=== PATIENT | female | born 1945 | race Caucasian/White ===

== ENCOUNTER 2019-02-18 | Emergency (ER) | payer MEDICARE, OTHER | END 2019-02-18 23:00 | disposition home or self-care (01) | DX: R26.9 Unspecified abnormalities of gait and mobility (principal); R20.0 Anesthesia of skin; E04.1 Nontoxic single thyroid nodule; R06.01 Orthopnea; I10 Essential (primary) hypertension | CPT/HCPCS: 36415; 70450; 80053; 83690; 84443; 84484; 85025; 85379; 93005; 93880; 99284 ==

== ENCOUNTER 2019-03-17 11:20 | Outpatient (CLI) | payer MEDICARE, OTHER | END 2019-03-17 11:21 | disposition home or self-care (01) | LOC: DI 11:20 | PROVIDERS: ATTEND Family Medicine | DX: I08.3 Combined rheumatic disorders of mitral, aortic and tricuspid valves (principal) | CPT/HCPCS: 93306 ==

== ENCOUNTER 2019-03-25 07:59 | Day surgery (SDC) | payer MEDICARE, OTHER ==
[2019-03-25] MEDS ORDERED: LACTATED RINGERS 1,000 ML IV ONE (08:25)
[2019-03-25] MEDS ORDERED: LIDO GARGLE 30 ML BOTTLE ONE (09:52)
[2019-03-25 11:15] VITALS: BP 132/75
== END 2019-03-25 08:00 | disposition home or self-care (01) ==
LOC: SDS 07:59
PROVIDERS: ATTEND Surgery
PROC: 0DB78ZX Excision of Stomach, Pylorus, Via Natural or Artificial Opening Endoscopic, Diagnostic (ICD-10-PCS; 2019-03-25)
PROC: 0DB58ZX Excision of Esophagus, Via Natural or Artificial Opening Endoscopic, Diagnostic (ICD-10-PCS; 2019-03-25)
PROC: 0DB98ZX Excision of Duodenum, Via Natural or Artificial Opening Endoscopic, Diagnostic (ICD-10-PCS; principal; 2019-03-25 09:15)
DX: K21.9 Gastro-esophageal reflux disease without esophagitis (principal); K22.70 Barrett's esophagus without dysplasia; K44.9 Diaphragmatic hernia without obstruction or gangrene; K29.50 Unspecified chronic gastritis without bleeding; Z87.891 Personal history of nicotine dependence; E66.9 Obesity, unspecified; Z68.30 Body mass index [BMI] 30.0-30.9, adult
CPT/HCPCS: 43239; J7120

== ENCOUNTER 2019-06-24 13:00 | Day surgery (SDC) | payer MEDICARE, OTHER ==
[2019-06-24] MEDS ORDERED: fentaNYL 250 MCG/5 ML VIAL IVP ONE (13:01)
[2019-06-24] MEDS ORDERED: MIDAZOLAM 2 MG/2 ML VIAL IVP ONE (13:01)
[2019-06-24] MEDS ORDERED: LACTATED RINGERS 1,000 ML IV ONE (13:13)
[2019-06-24 16:07] VITALS: BP 116/73
== END 2019-06-24 13:01 | disposition home or self-care (01) ==
LOC: SDS 13:00
PROVIDERS: ATTEND Surgery
PROC: 0DBP8ZX Excision of Rectum, Via Natural or Artificial Opening Endoscopic, Diagnostic (ICD-10-PCS; principal; 2019-06-24 15:00)
DX: K62.5 Hemorrhage of anus and rectum (principal); K57.30 Diverticulosis of large intestine without perforation or abscess without bleeding; K64.8 Other hemorrhoids; Z80.0 Family history of malignant neoplasm of digestive organs
CPT/HCPCS: 45380; J3010; J7120

== ENCOUNTER 2020-07-01 13:55 | Outpatient (CLI) | payer MEDICARE, OTHER | END 2020-07-01 13:56 | disposition home or self-care (01) | LOC: COV 13:55 | PROVIDERS: ATTEND Surgery | DX: Z01.812 Encounter for preprocedural laboratory examination (principal); K22.70 Barrett's esophagus without dysplasia; Z20.828 Contact with and (suspected) exposure to other viral communicable diseases ==

== ENCOUNTER 2020-07-07 08:46 | Day surgery (SDC) | payer MEDICARE, OTHER ==
[2020-07-07] MEDS ORDERED: LACTATED RINGERS 1,000 ML IV ONE (09:16)
[2020-07-07] MEDS ORDERED: LIDO GARGLE 30 ML BOTTLE ONE (09:29)
[2020-07-07] MEDS ORDERED: MIDAZOLAM 2 MG/2 ML VIAL ONE ×2 (09:44→10:08)
[2020-07-07] MEDS ORDERED: fentaNYL 100 MCG/2 ML VIAL ONE (09:45)
[2020-07-07] MEDS ORDERED: LIDO GARGLE 30 ML BOTTLE TOP ONE (09:47)
[2020-07-07] MEDS ORDERED: BENZOCAINE/TETRACAINE/BUTAMBEN 20 GM TOP ONE (09:48)
[2020-07-07] MEDS ORDERED: LACTATED RINGERS 500 ML IV ONE (10:17)
[2020-07-07 10:36] VITALS: BP 141/78
== END 2020-07-07 08:47 | disposition home or self-care (01) ==
LOC: SDS 08:46
PROVIDERS: ATTEND Surgery
PROC: 0DB48ZX Excision of Esophagogastric Junction, Via Natural or Artificial Opening Endoscopic, Diagnostic (ICD-10-PCS; principal; 2020-07-07 09:45)
DX: K22.70 Barrett's esophagus without dysplasia (principal); K29.50 Unspecified chronic gastritis without bleeding; E78.5 Hyperlipidemia, unspecified; J45.909 Unspecified asthma, uncomplicated; M79.7 Fibromyalgia; E66.9 Obesity, unspecified; Z68.33 Body mass index [BMI] 33.0-33.9, adult; I35.0 Nonrheumatic aortic (valve) stenosis; Z87.891 Personal history of nicotine dependence
CPT/HCPCS: 43239; A9270; J7120

== ENCOUNTER 2020-07-28 07:00 | Outpatient (CLI) | payer MEDICARE, OTHER ==
--- NOTE | 2020-07-29 13:19 | XRAY Report ---
PROCEDURE: Tib/Fib RT INDICATIONS: R LOWER LEG PX TECHNIQUE: 2 views of the tibia and fibula were acquired. COMPARISON: None FINDINGS: Bones: No fractures or dislocations. No suspicious bony lesions. Mild osteoarthritic change latera l tibial plateau. Soft tissues: No suspicious soft tissue calcifications or masses. IMPRESSION: No trauma found. 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 Several s cattered mid calf vascular calcifications appear present. Reviewed by: Jose Mancia MD on 07/29/2020 1:17 PM PST Approved by: Jose Mancia MD on 07/29/2020 1:17 PM PST Station ID: [id number]
== END 2020-07-28 23:59 | disposition home or self-care (01) ==
LOC: DI.N 07:00
PROVIDERS: ATTEND Nurse Practitioner
DX: M79.661 Pain in right lower leg (principal); M17.11 Unilateral primary osteoarthritis, right knee

== ENCOUNTER 2020-07-28 08:00 | Outpatient (CLI) | payer MEDICARE, OTHER ==
[2020-07-28 19:21] LABS: BASOPHILS % (AUTO) 0.6 %; EOSINOPHILS # (AUTO) 0.1 10^3/uL (0.0-0.7); EOSINOPHILS % (AUTO) 1.2 %; LYMPHOCYTES # (AUTO) 1.9 10^3/uL (1.5-3.5); LYMPHOCYTES % (AUTO) 27.9 %; MEAN CORPUSCULAR HEMOGLOBIN 30.3 pg (27.0-31.0); MEAN CORPUSCULAR HGB CONC 32.1 g/dL (32.0-36.0); MEAN CORPUSCULAR VOLUME 94.4 fL (81.0-99.0); MEAN PLATELET VOLUME 12.3 fL (7.9-10.8); MONOCYTES # (AUTO) 0.4 10^3/uL (0.0-1.0); MONOCYTES % (AUTO) 6.2 %; NEUTROPHILS # (AUTO) 4.4 10^3/uL (1.5-6.6); NEUTROPHILS % (AUTO) 63.8 %; PLT - PLATELET COUNT 225 10^3/uL (130-450); RED BLOOD COUNT 4.29 10^6/uL (4.20-5.40); RED CELL DISTRIBUTION WIDTH 13.2 % (12.0-15.0)
[2020-07-28 19:27] LABS: ALBUMIN/GLOBULIN RATIO 1.4 (1.0-2.2); BILIRUBIN,TOTAL 0.5 mg/dL (0.2-1.0); CALCIUM 10.1 mg/dL (8.5-10.3); CREATININE 0.8 mg/dL (0.4-1.0); TOTAL PROTEIN 6.9 g/dL (6.7-8.2)
== END 2020-07-28 23:59 ==
LOC: LAB.N 08:00
PROVIDERS: ATTEND Nurse Practitioner
DX: M79.661 Pain in right lower leg (principal)
CPT/HCPCS: 36415; 80053; 85025; 85379

== ENCOUNTER 2020-07-29 19:37 | Emergency (ER) | payer MEDICARE, OTHER ==
--- NOTE | 2020-07-29 20:42 | ED Physician Documentation ---
PD HPI LOWER EXT INJURY - Stated complaint Stated Complaint: RIGHT LEG PX - Chief complaint Chief Complaint: Ext Problem - History obtained from History obtained from: Patient - History of Present Illness PD HPI LOW EXT INJURY LOCATION: Right Type of injury: Blunt / blow Where injury occurred: Home Timing - details: Abrupt onset Improved by: Rest Worsened by: Moving, Palpating Associated symptoms: No: Weakness, Numbness, Tingling, Swelling, Discolored Contributing factors: No: Anticoagulated, Prior ortho surgery, Prosthetic joint Recently seen: Clinic - Additional information Additional information: 75-year-old female brought into the emergency department today from the walk-in clinic. She states that she accidentally ran into a piece of furniture a few days ago injuring her right anterior brown. Worse with walking, better with rest. Worse with palpation. The walk-in clinic performed a D-dimer which came back at 279. Her last D-dimer was in 2019 and was 277. They sent her here for an ultrasound to rule out DVT. The patient has no calf pain. No thigh pain or tenderness. No leg swelling. Review of Systems Constitutional: denies: Fever, Chills PD PAST MEDICAL HISTORY - Past Medical History Past Medical History: Yes Cardiovascular: Hypertension Respiratory: Asthma, Sleep apnea, CPAP use Neuro: TIA, Other Endocrine/Autoimmune: None GI: Ulcers [employer]IVING SALES COUNSELOR: None : Incontinence HEENT: Other Psych: Anxiety Musculoskeletal: Fibromyalgia Derm: None - Past Surgical History Past Surgical History: Yes General: EGD, Cholecystectomy, Colonoscopy /S[employer]IVING SALES COUNSELOR: Tubal ligation, Hysterectomy HEENT: Tonsil/Adenoidectomy Derm: Skin grafts - Present Medications Home Medications: Ambulatory Orders Medication Instructions Recorded Confirmed Cholecalciferol (Vitamin D3) 3,000 unit PO TID 01/19/13 07/07/20 [Vitamin D-3] Diphenhydramine HCl [Benadryl 25 mg PO Q6HR PRN 01/19/13 07/07/20 Allergy] Ubidecarenone [Co Q-10] 300 mg PO DAILY 01/19/13 07/07/20 Dry Eye Oint 1 each OP DAILY 01/18/14 06/23/19 methocarbamoL [Methocarbamol] 500 mg PO PRN PRN 03/25/19 07/07/20 - Allergies Allergies/Adverse Reactions: Allergies Allergy/AdvReac Type Severity Reaction Status Date / Time cefazolin sodium * Allergy Severe Edema Verified 02/18/19 18:36 [From Ancef] cimetidine Allergy Severe Respiratory Verified 02/18/19 18:36 cyclobenzaprine HCl * Allergy Severe Edema Verified 02/18/19 18:36 [From Flexeril] famotidine [From Pepcid] Allergy Severe Edema Verified 02/18/19 18:36 hydrochlorothiazide Allergy Severe Respiratory Verified 02/18/19 18:36 omeprazole Allergy Severe Edema Verified 02/18/19 18:36 Penicillins Allergy Severe Edema Verified 02/18/19 18:36 pseudoephedrine HCl * Allergy Severe Edema Verified 02/18/19 18:36 [From Sudafed] rabeprazole Allergy Severe Edema Verified 02/18/19 18:36 red dye Allergy Severe Edema Verified 02/18/19 18:36 Sulfa (Sulfonamide Allergy Severe Edema Verified 02/18/19 18:36 Antibiotics) acetaminophen Allergy Intermediate Hives Verified 02/18/19 18:36 iodine Allergy Mild Rash Verified 02/18/19 18:36 lisinopril Allergy Unknown Verified 07/07/20 09:30 terfenadine Allergy not known Verified 02/18/19 18:36 shellfish Allergy Mild Headache Uncoded 02/25/13 14:30 - Social History Does the pt smoke?: No Smoking Status: Never smoker Does the pt drink ETOH?: No Does the pt have substance abuse?: No - Immunizations Immunizations are current?: Yes - POLST Patient has POLST: No PD ED PE NORMAL - General General: Alert and oriented X 3 - HEENT HEENT: Moist mucous membranes - Neck Neck: Supple, no meningeal sign - Cardiac Cardiac: RRR, Strong equal pulses - Respiratory Respiratory: No respiratory distress, Clear bilaterally - Abdomen Abdomen: Soft, Non tender, Non distended - Derm Derm: Warm and dry - Extremities Extremities: Other (mild TTP over the R LE, near the anterior proximal tibia, no calf tenderness. NVI. no bruising or swelling.) - Neuro Neuro: Alert and oriented X 3 Results - Vitals Vitals: Vital Signs - 24 hr 07/29/20 07/29/20 07/29/20 19:43 20:00 20:53 Temperature 36.7 C Heart Rate 87 Respiratory 18 16 16 Rate Blood Pressure 124/78 O2 Saturation 98 07/29/20 07/29/20 07/29/20 21:50 22:23 22:42 Temperature 2.6 C L Heart Rate 76 Respiratory 17 17 16 Rate Blood Pressure 146/95 H O2 Saturation 99 Oxygen O2 Source Room air - Rads (name of study) duplex US RLE Radiology: Prelim report reviewed, EMP read contemporaneously, See rad report (no DVt) PD MEDICAL DECISION MAKING - ED course Complexity details: reviewed results, re-evaluated patient, considered differential, d/w patient ED course: 75-year-old female with a right lower extremity contusion. No DVT on ultrasound. We will continue supportive care and have her follow-up with her doctor. Her x-ray from earlier was also reviewed, no fractures. Patient was informed of the vascular calcifications. Patient counseled regarding signs and symptoms for which I believe and urgent re-evaluation would be necessary. Patient with good understanding of and agreement to plan and is comfortable going home at this time This document was made in part using voice recognition software. While efforts are made to proofread this document, sound alike and grammatical errors may occur. Departure - Departure Disposition: 01 Home, Self Care Clinical Impression: Hematoma of lower leg Condition: Good Instructions: ED Hematoma Follow-Up: Richa Haney MD [Primary Care Provider] - Within 1 week Comments: Your ultrasound does not show any acute abnormalities today. Follow-up with your doctor for further care. You can use Motrin and/or Tylenol as needed for pain. As your leg is hurting you when you walk, you should contact your doctor this weekend to see if they can change your stress test on Saturday to a nontr eadmill test. Discharge Date/Time: 07/29/20 22:00
[2020-07-29 22:24] VITALS: BP 146/95
--- NOTE | 2020-07-30 08:41 | Ultrasound Report ---
PROCEDURE: Duplex Ext Veins Right INDICATIONS: RLE pain TECHNIQUE: Real-time imaging, as well as color and pulse Doppler interrogation, were performed of the lower extr emity deep veins from the inguinal ligament to the popliteal fossa. COMPARISON: X-ray right lower leg 07/28/2020. FINDINGS: The deep veins are normally compressible, and free of intraluminal thrombus. Color and pu lse Doppler demonstrate normal phasic intraluminal flow. There is normal augmentation response to di stal compression maneuver. Posterior tibial and peroneal veins are patent. IMPRESSION: No right lower extremity DVT. Reviewed by: Terry Garza MD on 07/30/2020 7:40 AM [facility] Approved by: Terry Garza MD on 07/30/2020 7:40 AM [facility] Station ID: [id number]
--- OUTSIDE RECORDS SUMMARY | 2020-08-03 01:47 | EXTERNAL MEDICAL SUMMARY RPT | Continuity of Care Document ---
:1945 Demographics Phone Unavailable Preferred Language Azerbaijani Marital Status Unknown Protestant Affiliation Unknown Race Unknown Ethnic Group Unknown Author Organization [place] Address [address] [place] [address] Phone Care Team Providers Name Role Phone Unavailable Unavailable Itzel Unavailable Unavailable Medina Unavailable Unavailable DE LA ROSA Unavailable Unavailable Problems date description facility 2020-06-21 00:00:[address] [facility] 2020-06-21 00:00:00 Health-related behavior [facility] 2020-06-21 00:00:00 Tobacco use and exposure [facility] 2020-06-21 00:00:00 Exercise [facility] 2020-06-21 00:00:00 Details of drug misuse behavior [facility] 2020-06-21 00:00:[address] [facility] 2020-06-21 00:00:00 Tobacco smoking status [facility] 2020-06-21 00:00:00 Former smoker [facility] 2020-07-28 00:00 PAIN IN RIGHT LOWER LEG [facility] 2020-07-28 00:00:00 Pain in limb [facility] 2020-07-28 00:00:00 TIBIA & FIBULA 2 VIEWS [facility] 2020-07-28 00:00:00 COMPREHENSIVE METABOLIC PANEL [facility] 2020-07-28 00:00:00 CBC W/Diff/Plt [facility] 2020-07-28 00:00:00 D-DIMER [facility] 2020-07-28 00:00:00 Pain in right lower leg [facility] 2020-07-28 00:00:00 Pain of right lower leg [facility] 2020-07-28 08:00 PAIN IN RIGHT LOWER LEG [facility] Allergies date description facility [facility] No Known Drug All[facility] NO KNOWN ALLERGIES [facility] DROPERIDOL [facility] cyclobenzaprine HCl * [facility] pseudo[facility]hed[facility] * [facility] cefazolin sodium * [facility] Penicillins [facility] Sulfa (Sulfonamide Antibiotics) [facility] lisinopril [facility] iodine [facility] acetaminophen [facility] hydrochlorothiazide [facility] terfenadine [facility] cimetidine [facility] famotidine [facility] om[facility]razole [facility] rabeprazole [facility] red [facility] NO KNOWN ENVIRONMENTAL ALLERGIES [facility] shellfish [facility] NO KNOWN ALLERGIES [facility] cyclobenzaprine HCl * [facility] pseudoephed[facility] HCl * [facility] cefazolin sodium * [facility] Penicillins [facility] Sulfa (Sulfonamide Antibiotics) [facility]isinopril [facility]amin[facility] hydrochlorothiazide [facility]ine [facility]ep[facility] red [facility] OXYCODONE [facility] metronidazole [facility] LISINOPRIL [facility] PRAZOSIN HCL [facility] NO KNOWN ENVIRONMENTAL ALLERGIES [facility] NO ALLERGY INFORMATION AVAILABLE [facility] NO KNOWN ALLERGIES [facility] Procedures date description facility 2020-07-28 00:00:00 TIBIA & FIBULA 2 VIEWS [facility] date description facility 2020-07-28 00:00:00 COMPREHENSIVE METABOLIC PANEL [facility] date description facility 2020-07-28 00:00:00 CBC W/Diff/Plt [facility] [place] [facility] date description facility 2020-07-28 00:00:00 D-DIMER [facility] date description facility 2020-07-28 00:00:00 [facility] Results Social History date description facility 2020-06-21 00:00:00 Former smoker [facility] Social History date description facility 2020-06-21 00:00:00 Former smoker [facility] date description facility [id number]
== END 2020-07-29 22:00 | disposition home or self-care (01) ==
LOC: ED 19:37
DX: S80.10XA Contusion of unspecified lower leg, initial encounter (principal); W22.03XA Walked into furniture, initial encounter; Y92.009 Unspecified place in unspecified non-institutional (private) residence as the place of occurrence of the external cause; I10 Essential (primary) hypertension
CPT/HCPCS: 99284

== ENCOUNTER 2020-08-19 14:10 | Outpatient (CLI) | payer MEDICARE, OTHER | END 2020-08-19 14:11 | disposition home or self-care (01) | LOC: COV 14:10 | PROVIDERS: ATTEND Ophthalmology | DX: Z01.812 Encounter for preprocedural laboratory examination (principal); H25.811 Combined forms of age-related cataract, right eye; Z20.822 Contact with and (suspected) exposure to COVID-19 ==

== ENCOUNTER 2020-08-25 06:45 | Day surgery (SDC) | payer MEDICARE, OTHER ==
[~2020-08-25 06:45] MED LIST: KETOROLAC 0.45% OPHTH DROPS ONE; PHENYLEPHRINE 2.5% OPHTH 2 ML DROPS ONE; PROPARACAINE 0.5% OPHTH DROPS 15 ML ONE
--- NOTE | 2020-08-25 07:43 | ANESTHESIA ---
Pre-Anesthesia VS, & Labs - Diagnosis R senile combined cataract - Procedure R cataract extraction w/IOL Vital Signs: Temp Pulse Resp BP Pulse Ox 36.2 C L 62 16 125/74 100 08/25/20 07:00 08/25/20 07:00 08/25/20 07:00 08/25/20 07:00 08/25/20 07:00 Height: 5 ft 2 in Weight (kg): 81.7 kg Body Mass Index: 32.9 BMI Classification: Obese - NPO >8 hours - Is Patient ?: No - Lab Results Lab results reviewed: Yes Home Medications and Allergies Cholecalciferol (Vitamin D3) [Vitamin D-3] 3,000 unit PO TID 01/19/13 Diphenhydramine HCl [Benadryl Allergy] 25 mg PO Q6HR PRN 01/19/13 Ubidecarenone [Co Q-10] 300 mg PO DAILY 01/19/13 Dry Eye Oint 1 each OP DAILY 01/18/14 methocarbamoL [Methocarbamol] 500 mg PO PRN PRN 03/25/19 Allergies/Adverse Reactions: Allergies Allergy/AdvReac Type Severity Reaction Status Date / Time cefazolin sodium * Allergy Severe Edema Verified 02/18/19 18:36 [From Ancef] cimetidine Allergy Severe Respiratory Verified 02/18/19 18:36 cyclobenzaprine HCl * Allergy Severe Edema Verified 02/18/19 18:36 [From Flexeril] famotidine [From Pepcid] Allergy Severe Edema Verified 02/18/19 18:36 hydrochlorothiazide Allergy Severe Respiratory Verified 02/18/19 18:36 omeprazole Allergy Severe Edema Verified 02/18/19 18:36 Penicillins Allergy Severe Edema Verified 02/18/19 18:36 pseudoephedrine HCl * Allergy Severe Edema Verified 02/18/19 18:36 [From Sudafed] rabeprazole Allergy Severe Edema Verified 02/18/19 18:36 red dye Allergy Severe Edema Verified 02/18/19 18:36 Sulfa (Sulfonamide Allergy Severe Edema Verified 02/18/19 18:36 Antibiotics) acetaminophen Allergy Intermediate Hives Verified 02/18/19 18:36 iodine Allergy Mild Rash Verified 02/18/19 18:36 lisinopril Allergy Unknown Verified 07/07/20 09:30 terfenadine Allergy not known Verified 02/18/19 18:36 shellfish Allergy Mild Headache Uncoded 02/25/13 14:30 Anes History & Medical History - Anesthetic History Anesthesia Complications: reports: No previous complications Family history of Anesthesia Complications: Denies Family history of Malignant Hyperthermia: Denies - Medical History Cardiovascular: reports: Hypertension Pulmonary: reports: Asthma, Sleep apnea, CPAP use Gastrointestinal: reports: Ulcers Urinary: reports: Incontinence Neuro: reports: TIA, Other Musculoskeletal: reports: Fibromyalgia Endocrine/Autoimmune: reports: None Blood Disorders: reports: None Skin: reports: None Smoking Status: Never smoker - Surgical History General: EGD, Cholecystectomy, Colonoscopy Eyes Ears Nose Throat (EENT): Tonsil/Adenoidectomy Gynecologic: Tubal ligation, Hysterectomy Dermatologic: Skin grafts Exam General: Alert, Oriented x3, Cooperative Dental: WNL Mouth Openin Fingerbreadth Neck Mobility: Normal Mallampati classification: II Thyromental Distance: 4-6 cm Respiratory: Lungs clear, Normal breath sounds, No respiratory distress Cardiovascular: Regular rate Neurological: Normal speech Mental/Cognitive Status: Alert/Oriented X3, Normal for patient Cognitive Status: Within normal limits Plan Anesthesia Type: MAC Consent for Procedure(s) Verified and Reviewed: Yes Code Status: Attempt Resuscitation ASA classification: 2-Mild systemic disease Is this case an emergency?: No
[2020-08-25] MEDS ORDERED: fentaNYL 100 MCG/2 ML VIAL ONE (07:51)
[2020-08-25] MEDS ORDERED: MIDAZOLAM 2 MG/2 ML VIAL ONE (07:51)
[2020-08-25] MEDS ORDERED: TRIAMCIN/MOXIFLOX OPHTHALMIC 0.6 ML VIAL IO ONE ×2 (07:54→08:14)
[2020-08-25] MEDS ORDERED: EPINEPHrine 1 MG/ML AMP ONE (07:55)
[2020-08-25] MEDS ORDERED: TIMOLOL 0.5% OPHTH DROPS ONE (07:55)
[2020-08-25] MEDS ORDERED: BSS/LIDOCAINE/EPINEPHRINE 1 ML SYRINGE ONE (07:55)
[2020-08-25] MEDS ORDERED: BRIMONIDINE 0.2% OPHTH DROPS 5 ML ONE (07:55)
[2020-08-25] MEDS ORDERED: VANCOMYCIN OPHTHALMI 8MG/0.8ML 8 MG/0.8 ML SYRINGE IO ONE ×2 (07:55→08:15)
[2020-08-25] MEDS ORDERED: BRIMONIDINE 0.2% OPHTH DROPS 5 ML OPTH ONE (08:13)
[2020-08-25] MEDS ORDERED: EPINEPHrine 1 MG/ML AMP IR ONE (08:13)
[2020-08-25] MEDS ORDERED: CHONDR SULF/HYALURONATE SYRINGE IO ONE (08:14)
[2020-08-25] MEDS ORDERED: BSS/LIDOCAINE/EPINEPHRINE 1 ML SYRINGE IO ONE (08:14)
[2020-08-25] MEDS ORDERED: TIMOLOL 0.5% OPHTH DROPS OPTH ONE (08:14)
[2020-08-25] MEDS ORDERED: PROPARACAINE 0.5% OPHTH DROPS 15 ML EACHEYE ONE (08:15)
[2020-08-25] MEDS ORDERED: LACTATED RINGERS 500 ML IV ONE (08:25)
[2020-08-25 08:44] VITALS: BP 114/65
--- NOTE | 2020-08-25 08:51 | ANESTHESIA POST OP EVALUATION ---
Anesthesia Post Eval - Post Anesthesia Eval Vitals: Last Vital Signs Temp 36.5 C 08/25/20 08:26 Pulse 65 08/25/20 08:44 Resp 18 08/25/20 08:44 BP 114/65 08/25/20 08:44 Pulse Ox 97 08/25/20 08:44 CV Function Including HR & BP: positive: Stable Pain Control: positive: Satisfactory Nausea & Vomiting: positive: Negative Mental Status: positive: Baseline Respiratory Status: Airway Patent Hydration Status: Satisfactory Anesthesia Complications: positive: None
--- NOTE | 2020-08-25 09:56 | PROCEDURE REPORT ---
DATE OF SERVICE: 08/25/2020 Physician: Cliff Stinson MD PREOPERATIVE DIAGNOSIS: Visually significant cataract, right eye. This was her first cataract surgery. POSTOPERATIVE DIAGNOSIS: Visually significant cataract, right eye. This was her first cataract surgery. PROCEDURE: Phacoemulsification with posterior chamber intraocular lens implant, right eye. SURGEON: Cliff Stinson MD ANESTHESIA: Monitored anesthesia care. COMPLICATIONS: None. OPERATIVE INDICATIONS: This is a 75-year-old woman with progressive vision loss in the right eye due to 3-4+ nuclear sclerotic and 2+ cortical cataract. Best corrected visual acuity was 20/20 with glare to 20/60 in the right eye. Indications for surgery are overall decrease in vision, difficulty seeing words on a computer screen, difficulty reading, difficulty seeing words, closed caption or game scores on TV, difficulty seeing street signs, difficulty driving in low light or at night, difficulty driving at night because headlights from other vehicles, and difficulty with glare or bright lights in any situation. She was consented at length concerning risks and benefits of cataract surgery, after which she expressed a desire to proceed with surgery. OPERATIVE PROCEDURE: The patient was taken to OR #3 and placed under monitored anesthesia care. A surgical timeout was conducted confirming correct patient, correct procedure, and correct surgical site. She was given topical anesthesia, and prepped and draped in the usual sterile fashion. The eye was entered at the 12 and 9 o'clock positions. Intracameral Shugarcaine was injected into the anterior chamber, followed by Viscoat. A continuous-tear curvilinear capsulorrhexis was performed. The nucleus was hydrodissected and phacoemulsified. The cortex was evacuated using automated infusion and aspiration. Provisc was injected in the capsular bag and a 22.5 diopter intraocular lens inserted in the bag. Infusion and aspiration were used to evacuate the viscoelastic materials. The eye was inflated to physiologic pressure using balanced salt solution and found to be watertight. Approximately 0.25 mL of a mixture of triamcinolone and moxifloxacin was injected transsclerally into the vitreous in inferotemporal quadrant. An additional 0.55 mL of a mixture of triamcinolone, moxifloxacin, and vancomycin was injected subconjunctivally in the superior quadrant for infection and inflammation prophylaxis. Wound integrity was checked with Weck-Hannah sponges. The patient was taken from the operating room in good condition and given postoperative instructions. TD: 08/25/2020 08:37 NADIA
== END 2020-08-25 06:46 | disposition home or self-care (01) ==
LOC: SDS 06:45
PROVIDERS: ATTEND Ophthalmology
DX: H25.811 Combined forms of age-related cataract, right eye (principal); K22.70 Barrett's esophagus without dysplasia; G45.4 Transient global amnesia; Z86.73 Personal history of transient ischemic attack (TIA), and cerebral infarction without residual deficits; E66.9 Obesity, unspecified; Z68.32 Body mass index [BMI] 32.0-32.9, adult; I10 Essential (primary) hypertension; G47.30 Sleep apnea, unspecified; J45.909 Unspecified asthma, uncomplicated; M18.12 Unilateral primary osteoarthritis of first carpometacarpal joint, left hand; M11.242 Other chondrocalcinosis, left hand
CPT/HCPCS: 66984; 73110; A9270; J3490; J7120; V2632

== ENCOUNTER 2020-08-25 08:57 | Outpatient (CLI) | payer MEDICARE, OTHER ==
--- NOTE | 2020-08-25 12:17 | XRAY Report ---
PROCEDURE: Wrist 4 View LT INDICATIONS: LT WRIST PAIN TECHNIQUE: 4 views of the wrist were acquired. COMPARISON: None. FINDINGS: Bones: No acute fractures or dislocations. No suspicious bony lesions. There is generalized osteop enia. Severe degenerative changes are seen in the first carpometacarpal joint with joint space narrow ing, subchondral sclerosis, marginal osteophyte formation. Scaphoid view: Intact scaphoid. Soft tissues: Mild soft tissue edema is seen surrounding the wrist. Mild chondrocalcinosis is noted i n the region of the triangular fibrocartilage. IMPRESSION: 1. No acute osseous abnormality. If symptoms persist with conservative management, further evaluatio n with CT or MRI may be obtained. 2. Severe first carpometacarpal joint osteoarthrosis. 3. Mild chondrocalcinosis. Reviewed by: Berto Freedman MD on 08/25/2020 12:16 PM [facility] Approved by: Berto Freedman MD on 08/25/2020 12:16 PM [facility] Station ID: [id number]
== END 2020-08-25 08:58 | disposition home or self-care (01) ==
LOC: DI 08:57
PROVIDERS: ATTEND Internal Medicine
DX: M18.12 Unilateral primary osteoarthritis of first carpometacarpal joint, left hand (principal); M11.242 Other chondrocalcinosis, left hand

== ENCOUNTER 2021-01-23 16:28 | Outpatient (CLI) | payer MEDICARE, OTHER ==
--- NOTE | 2021-01-23 17:29 | Ultrasound Report ---
PROCEDURE: Duplex Ext Veins Right INDICATIONS: RLE pain and swelling TECHNIQUE: Real-time imaging, as well as color and pulse Doppler interrogation, were performed of the lower extr emity deep veins from the inguinal ligament to the popliteal fossa. COMPARISON: 07/29/2020 lower extremity DVT ultrasound on the right.. FINDINGS: The deep veins are normally compressible, and free of intraluminal thrombus. Color and pu lse Doppler demonstrate normal phasic intraluminal flow. There is normal augmentation response to di stal compression maneuver. IMPRESSION: No DVT is found. There is a superficial vein thrombosis of the greater saphenous vein at the mid to distal right calf in the area of tenderness. Reviewed by: Jose Mancia MD on 01/23/2021 5:28 PM PDT Approved by: Jose Mancia MD on 01/23/2021 5:28 PM PDT Station ID: [id number]
== END 2021-01-23 16:29 | disposition home or self-care (01) ==
LOC: DI 16:28
PROVIDERS: ATTEND Internal Medicine
DX: I82.811 Embolism and thrombosis of superficial veins of right lower extremity (principal)

== ENCOUNTER 2021-04-17 08:54 | Outpatient (CLI) | payer MEDICARE, OTHER ==
--- NOTE | 2021-04-17 10:46 | MRI Report ---
PROCEDURE: Brain W/O INDICATIONS: TREMOR, WEKNESS, MEMORY LOSS, HX BRAIN CYST TECHNIQUE: Noncontrast axial T1 spin echo, axial T2 fast spin echo, sagittal and axial FLAIR, coronal T2 fast sp in echo, axial gradient echo, axial diffusion and ADC through the brain. COMPARISON: 02/18/[address] FINDINGS: Image quality: Excellent. CSF Spaces: Basal cisterns are patent. Small arachnoid cyst adjacent to the left cerebellar hemisphe re is unchanged. Ventricles are normal in size and shape. Brain: No intracranial masses or hemorrhage. Denny/white matter interface is normal. Brainstem appe ars normal. Diffusion-weighted images demonstrate no acute ischemic insult. No chronic ischemic ins ults. Normal intravascular flow voids are present. Skull and face: Calvarium has normal marrow signal. No gross orbital abnormality. Sinuses: Sinuses and mastoids are clear. IMPRESSION: Mild global cerebral volume loss and chronic vascular ischemic changes. No acute intracranial abnormality or significant change from prior study. Reviewed by: Jaquan Waldron MD on 04/17/2021 10:44 AM PDT Approved by: Jaquan Waldron MD on 04/17/2021 10:44 AM PDT Station ID: [id number]
== END 2021-04-17 08:55 | disposition home or self-care (01) ==
LOC: DI 08:54
PROVIDERS: ATTEND Internal Medicine
DX: R25.1 Tremor, unspecified (principal); R53.1 Weakness; R41.3 Other amnesia; Z86.011 Personal history of benign neoplasm of the brain

== ENCOUNTER 2021-05-24 09:23 | Day surgery (SDC) | payer MEDICARE, OTHER ==
[2021-05-24] MEDS ORDERED: LACTATED RINGERS 1,000 ML IV ONE ×2 (10:08→12:00)
--- NOTE | 2021-05-24 10:49 | ANESTHESIA ---
Pre-Anesthesia VS, & Labs - Diagnosis GERD, screening colonsoscopy - Procedure EGD, Colonoscopy Vital Signs: Temp Pulse Resp BP Pulse Ox 36.5 C 78 14 138/79 H 100 05/24/21 09:29 05/24/21 09:29 05/24/21 09:29 05/24/21 09:29 05/24/21 09:29 Height: 5 ft 3 in Weight (kg): 77 kg Body Mass Index: 30.0 BMI Classification: Obese - NPO >8 hours - Is Patient ?: No Home Medications and Allergies Home Medications: Ambulatory Orders Aspirin Chewable [St Veto Aspirin] 81 mg PO DAILY 05/23/21 Cholecalciferol (Vitamin D3) [Vitamin D-3] 3,000 unit PO TID 01/19/13 Diphenhydramine HCl [Benadryl Allergy] 25 mg PO Q6HR PRN 01/19/13 Dry Eye Oint 1 each OP DAILY 01/18/14 Aspirin Chewable [St Veto Aspirin] 81 mg PO DAILY 05/23/21 Allergies/Adverse Reactions: Allergies Allergy/AdvReac Type Severity Reaction Status Date / Time cefazolin sodium * Allergy Severe Edema Verified 02/18/19 18:36 [From Ancef] cimetidine Allergy Severe Respiratory Verified 02/18/19 18:36 cyclobenzaprine HCl * Allergy Severe Edema Verified 02/18/19 18:36 [From Flexeril] famotidine [From Pepcid] Allergy Severe Edema Verified 02/18/19 18:36 hydrochlorothiazide Allergy Severe Respiratory Verified 02/18/19 18:36 omeprazole Allergy Severe Edema Verified 02/18/19 18:36 Penicillins Allergy Severe Edema Verified 02/18/19 18:36 pseudoephedrine HCl * Allergy Severe Edema Verified 02/18/19 18:36 [From Sudafed] rabeprazole Allergy Severe Edema Verified 02/18/19 18:36 red dye Allergy Severe Edema Verified 02/18/19 18:36 Sulfa (Sulfonamide Allergy Severe Edema Verified 02/18/19 18:36 Antibiotics) acetaminophen Allergy Intermediate Hives Verified 02/18/19 18:36 iodine Allergy Mild Rash Verified 02/18/19 18:36 lisinopril Allergy Unknown Verified 07/07/20 09:30 terfenadine Allergy not known Verified 02/18/19 18:36 metoclopramide [From Reglan] AdvReac Unknown Verified 05/23/21 12:58 shellfish Allergy Mild Headache Uncoded 02/25/13 14:30 Anes History & Medical History - Anesthetic History Anesthesia Complications: reports: No previous complications - Medical History Cardiovascular: reports: None, Murmur, Arrhythmia Pulmonary: reports: Sleep apnea (resolved since wt loss) Gastrointestinal: reports: Colon polyps, Chronic constipation, Cholelithiasis, Ulcerative colitis, Other Urinary: reports: None Neuro: reports: TIA, Other Musculoskeletal: reports: Osteoarthritis Endocrine/Autoimmune: reports: None Blood Disorders: reports: None Skin: reports: None Smoking Status: Never smoker History of Cancer?: No - Surgical History General: reports: Cholecystectomy, Gastric surgery Eyes Ears Nose Throat (EENT): reports: Cataracts, Tonsil/Adenoidectomy, Other Gynecologic: reports: Hysterectomy Orthopedic: reports: Carpal Tunnel surgery Dermatologic: reports: Skin grafts Exam General: Alert Dental: WNL Mouth Opening: Greater than 4 Fingerbreadths Neck Mobility: Normal Mallampati classification: II Thyromental Distance: greater than 6 cm Respiratory: Lungs clear Cardiovascular: Regular rate Plan Anesthesia Type: Total IV Consent for Procedure(s) Verified and Reviewed: Yes Code Status: Attempt Resuscitation ASA classification: 2-Mild systemic disease Is this case an emergency?: No
[2021-05-24] MEDS ORDERED: fentaNYL 100 MCG/2 ML VIAL ONE (10:51)
[2021-05-24] MEDS ORDERED: PROPOFOL 200 MG/20 ML VIAL IVP ONE ×2 (10:51→11:32)
[2021-05-24] MEDS ORDERED: MIDAZOLAM 2 MG/2 ML VIAL ONE (10:51)
--- NOTE | 2021-05-24 12:28 | ANESTHESIA POST OP EVALUATION ---
Anesthesia Post Eval - Post Anesthesia Eval Vitals: Last Vital Signs Temp 36.4 C L 05/24/21 12:02 Pulse 78 05/24/21 12:13 Resp 22 05/24/21 12:13 BP 122/72 05/24/21 12:13 Pulse Ox 99 05/24/21 12:13 CV Function Including HR & BP: Stable Pain Control: Satisfactory Nausea & Vomiting: Negative Mental Status: Baseline Respiratory Status: Airway Patent Hydration Status: Satisfactory Anesthesia Complications: None
[2021-05-24 12:29] VITALS: BP 162/72
== END 2021-05-24 09:24 | disposition home or self-care (01) ==
LOC: SDS 09:23
PROVIDERS: ATTEND Surgery
PROC: 0DBL8ZZ Excision of Transverse Colon, Via Natural or Artificial Opening Endoscopic (ICD-10-PCS; principal; 2021-05-24 10:30)
PROC: 0DB38ZX Excision of Lower Esophagus, Via Natural or Artificial Opening Endoscopic, Diagnostic (ICD-10-PCS; 2021-05-24 10:30)
DX: K62.5 Hemorrhage of anus and rectum (principal); K59.00 Constipation, unspecified; K57.30 Diverticulosis of large intestine without perforation or abscess without bleeding; D12.3 Benign neoplasm of transverse colon; K64.8 Other hemorrhoids; K22.70 Barrett's esophagus without dysplasia; R10.13 Epigastric pain; R13.10 Dysphagia, unspecified; K21.9 Gastro-esophageal reflux disease without esophagitis; Z87.891 Personal history of nicotine dependence; R25.1 Tremor, unspecified
CPT/HCPCS: 43239; 45380; J7120

== ENCOUNTER 2021-08-24 08:19 | Outpatient (CLI) | payer MEDICARE, OTHER ==
--- NOTE | 2021-08-25 08:10 | Mammography Report ---
BILATERAL DIGITAL SCREENING MAMMOGRAM 3D/2D: 08/24/2021 CLINICAL: Routine screening. Comparison is made to exams dated: 06/30/2014 mammogram and 01/20/2013 mammogram - [facility]. There are scattered fibroglandular elements in both breasts. No significant masses, calcifications, or other findings are seen in either breast. There has been no significant interval change. IMPRESSION: NEGATIVE There is no mammographic evidence of malignancy. A 1 year screening mammogram is recommended. This exam was interpreted at Station ID: [id number]. NOTE: For mammograms, a report in lay terms will be sent to the patient. Approximately 15% of breast malignancies will not be visualized mammographically. In the management of a palpable breast mass, a negative mammogram must not discourage biopsy of a clinically suspicious lesion. Electronically Signed By: Edi Feliciano M.D. aty/penrad:08/24/2021 11:49:00 ACR BI-RADS Category 1: Negative 3341F PARENCHYMAL PATTERN: (A) - The breast(s) demonstrate(s) scattered fibroglandular densities. BI-RADS CATEGORY: (1) - 1 RECOMMENDATION: (ANNUAL) - Recommend routine annual screening mammography. [id number] 1 year screening LATERALITY: (B)
== END 2021-08-24 08:20 | disposition home or self-care (01) ==
LOC: DI.N 08:19
PROVIDERS: ATTEND Internal Medicine
DX: Z12.31 Encounter for screening mammogram for malignant neoplasm of breast (principal)

== ENCOUNTER 2021-11-30 16:50 | Outpatient (CLI) | payer MEDICARE, OTHER ==
--- NOTE | 2021-12-01 14:29 | XRAY Report ---
PROCEDURE: Shoulder 2 View RT INDICATIONS: RT SHOULDER PAIN; RT UPPER ARM PAIN TECHNIQUE: 2 views of the shoulder were acquired. COMPARISON: None. FINDINGS: Bones: No fractures or dislocations. No suspicious bony lesions. Visualized ribs appear intact. M oderate acromioclavicular degenerative narrowing. Mild glenohumeral narrowing. Soft tissues: No suspicious soft tissue calcifications. IMPRESSION: Glenohumeral and acromioclavicular arthritic change. Reviewed by: Astrid Marie MD on 12/01/2021 2:28 PM PDT Approved by: Astrid Marie MD on 12/01/2021 2:28 PM PDT Station ID: [id number]
== END 2021-11-30 16:51 | disposition home or self-care (01) ==
LOC: DI 16:50
PROVIDERS: ATTEND Internal Medicine
DX: M19.011 Primary osteoarthritis, right shoulder (principal)

== ENCOUNTER 2022-06-27 08:35 | Day surgery (SDC) | payer MEDICARE, OTHER ==
[2022-06-27] MEDS ORDERED: LACTATED RINGERS 1,000 ML IV ONE ×2 (09:03→12:05)
--- NOTE | 2022-06-27 10:01 | ANESTHESIA ---
Pre-Anesthesia VS, & Labs - Diagnosis barrets esophagus - Procedure EGD Vital Signs: Temp Pulse Resp BP Pulse Ox O2 Flow Rate 36.4 C L 65 19 152/86 H 100 06/27/22 09:00 06/27/22 09:00 06/27/22 09:00 06/27/22 09:00 06/27/22 09:00 Height: 5 ft 2 in Weight (kg): 76.3 kg Body Mass Index: 30.7 BMI Classification: Obese - NPO >8 hours - Is Patient ?: No Home Medications and Allergies Home Medications: Ambulatory Orders Propylene Glycol/Peg 400/Pf [Systane 0.3-0.4% Eye Drops] 1 each OP PRN PRN 06/20/22 Psyllium [Metamucil] 1 each PO DAILY 06/20/22 methocarbamoL [Methocarbamol] 750 mg PO PRN PRN 06/20/22 Aspirin Chewable [St Veto Aspirin] 81 mg PO DAILY 05/23/21 Propylene Glycol/Peg 400/Pf [Systane 0.3-0.4% Eye Drops] 1 each OP PRN PRN 06/20/22 Psyllium [Metamucil] 1 each PO DAILY 06/20/22 methocarbamoL [Methocarbamol] 750 mg PO PRN PRN 06/20/22 Allergies/Adverse Reactions: Allergies Allergy/AdvReac Type Severity Reaction Status Date / Time cefazolin sodium * Allergy Severe Edema Verified 02/18/19 18:36 [From Ancef] cimetidine Allergy Severe Respiratory Verified 02/18/19 18:36 cyclobenzaprine HCl * Allergy Severe Edema Verified 02/18/19 18:36 [From Flexeril] famotidine [From Pepcid] Allergy Severe Edema Verified 02/18/19 18:36 hydrochlorothiazide Allergy Severe Respiratory Verified 02/18/19 18:36 omeprazole Allergy Severe Edema Verified 02/18/19 18:36 Penicillins Allergy Severe Edema Verified 02/18/19 18:36 pseudoephedrine HCl * Allergy Severe Edema Verified 02/18/19 18:36 [From Sudafed] rabeprazole Allergy Severe Edema Verified 02/18/19 18:36 red dye Allergy Severe Edema Verified 02/18/19 18:36 Sulfa (Sulfonamide Allergy Severe Edema Verified 02/18/19 18:36 Antibiotics) acetaminophen Allergy Intermediate Hives Verified 02/18/19 18:36 iodine Allergy Mild Rash Verified 02/18/19 18:36 lisinopril Allergy Unknown Verified 07/07/20 09:30 terfenadine Allergy not known Verified 02/18/19 18:36 metoclopramide [From Reglan] AdvReac Unknown Verified 05/23/21 12:58 shellfish Allergy Mild Headache Uncoded 02/25/13 14:30 Anes History & Medical History - Anesthetic History Anesthesia Complications: reports: No previous complications - Medical History Cardiovascular: reports: Murmur (EF normal. 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) Smoking Status: Former smoker (quit 1979) Psychosocial: reports: Anxiety History of Cancer?: No - Surgical History General: reports: Cholecystectomy, Gastric surgery, EGD Eyes Ears Nose Throat (EENT): reports: Cataracts, Tonsil/Adenoidectomy, Other Gynecologic: reports: Hysterectomy Orthopedic: reports: Carpal Tunnel surgery Dermatologic: reports: Skin grafts Results - Echo Results Echo Results: Report reviewed Exam General: Alert, Oriented x3, Cooperative, No acute distress Mouth Openin Fingerbreadth Neck Mobility: Normal Mallampati classification: II Thyromental Distance: 4-6 cm Mental/Cognitive Status: Alert/Oriented X3, Normal for patient Plan Anesthesia Type: Total IV Consent for Procedure(s) Verified and Reviewed: Yes Code Status: Attempt Resuscitation ASA classification: 2-Mild systemic disease Is this case an emergency?: No
[2022-06-27] MEDS ORDERED: LIDOCAINE-MPF 2% 5 ML VIAL ONE (11:27)
[2022-06-27] MEDS ORDERED: PROPOFOL 200 MG/20 ML VIAL IVP ONE (11:27)
[2022-06-27] MEDS ORDERED: fentaNYL 100 MCG/2 ML VIAL ONE (11:27)
[2022-06-27] MEDS ORDERED: ROPIVACAINE 0.5% PF 20 ML VIAL ONE (11:30)
[2022-06-27 12:33] VITALS: BP 130/75
--- NOTE | 2022-06-27 13:00 | ANESTHESIA POST OP EVALUATION ---
Anesthesia Post Eval - Post Anesthesia Eval Vitals: Last Vital Signs Temp 36.5 C 06/27/22 12:05 Pulse 68 06/27/22 12:33 Resp 21 06/27/22 12:33 BP 130/75 06/27/22 12:33 Pulse Ox 98 06/27/22 12:33 O2 Flow Rate CV Function Including HR & BP: Stable Pain Control: Satisfactory Nausea & Vomiting: Negative Mental Status: Baseline Respiratory Status: Airway Patent Hydration Status: Satisfactory Anesthesia Complications: None
== END 2022-06-27 08:36 | disposition home or self-care (01) ==
LOC: SDS 08:35
PROVIDERS: ATTEND Surgery
PROC: 0DB48ZX Excision of Esophagogastric Junction, Via Natural or Artificial Opening Endoscopic, Diagnostic (ICD-10-PCS; principal; 2022-06-27 09:45)
DX: K22.70 Barrett's esophagus without dysplasia (principal); E66.9 Obesity, unspecified; G47.30 Sleep apnea, unspecified; N18.30 Chronic kidney disease, stage 3 unspecified; Z68.30 Body mass index [BMI] 30.0-30.9, adult; Z87.891 Personal history of nicotine dependence
CPT/HCPCS: 43239; J2795; J7120

== ENCOUNTER 2022-08-10 08:00 | Outpatient (CLI) | payer MEDICARE, OTHER ==
[2022-08-10 16:37] LABS: BASOPHILS # (AUTO) 0.1 10^3/uL (0.0-0.1); BASOPHILS % (AUTO) 0.7 %; EOSINOPHILS # (AUTO) 0.1 10^3/uL (0.0-0.7); EOSINOPHILS % (AUTO) 1.1 %; HCT - HEMATOCRIT 44.2 % (37.0-47.0); HGB - HEMOGLOBIN 14.1 g/dL (12.0-16.0); LYMPHOCYTES # (AUTO) 1.8 10^3/uL (1.5-3.5); MEAN CORPUSCULAR HEMOGLOBIN 29.8 pg (27.0-31.0); MEAN CORPUSCULAR HGB CONC 31.9 g/dL (32.0-36.0); MEAN CORPUSCULAR VOLUME 93.4 fL (81.0-99.0); MEAN PLATELET VOLUME 12.2 fL (7.9-10.8); MONOCYTES # (AUTO) 0.5 10^3/uL (0.0-1.0); MONOCYTES % (AUTO) 6.6 %; NEUTROPHILS % (AUTO) 67.5 %; PLT - PLATELET COUNT 228 10^3/uL (130-450); RED BLOOD COUNT 4.73 10^6/uL (4.20-5.40); RED CELL DISTRIBUTION WIDTH 13.6 % (12.0-15.0); WHITE BLOOD COUNT 7.4 x10^3/uL (4.8-10.8)
[2022-08-10 16:40] LABS: BILIRUBIN,URINE NEGATIVE (NEGATIVE); GLUCOSE, URINE (UA) NEGATIVE (NEGATIVE); KETONES,URINE (UA) NEGATIVE (NEGATIVE); LEUKOCYTE ESTERASE, URINE TRACE (NEGATIVE); NITRITE,URINE NEGATIVE (NEGATIVE); OCCULT BLOOD,URINE TRACE-LYSE (NEGATIVE); PROTEIN,URINE NEGATIVE (NEGATIVE); UROBILINOGEN,URINE 0.2 (NORMAL) E.U./dL (NORMAL)
[2022-08-10 16:42] LABS: CLARITY,URINE CLOUDY (CLEAR)
[2022-08-10 16:50] LABS: BACTERIA,URINE Moderate /HPF (None Seen); RBC,URINE 0-5 /HPF (0-5); SQUAMOUS EPITHELIAL CELL,UR FEW Squamous (<= Few)
[2022-08-10 16:57] LABS: ALBUMIN 3.8 g/dL (3.2-5.5); ALBUMIN/GLOBULIN RATIO 1.1 (1.0-2.2); ALKALINE PHOSPHATASE 55 IU/L (42-121); ALT ALANINE AMINOTRANSFERASE 13 IU/L (10-60); AST ASPARTATE AMINOTRANSFERASE 13 IU/L (10-42); BILIRUBIN,TOTAL 0.4 mg/dL (0.2-1.0); BUN - BLOOD UREA NITROGEN 21 mg/dL (6-20); CALCIUM 9.8 mg/dL (8.5-10.3); CARBON DIOXIDE - CO2 26 mmol/L (21-32); CHLORIDE 104 mmol/L (101-111); CHOL/HDL RATIO 3.1 (<4.4); CHOLESTEROL 259 mg/dL; CREATININE 0.8 mg/dL (0.4-1.0); GFR - MDRD 69 (>89); GLUCOSE 89 mg/dL (70-100); HDL CHOLESTEROL 83 mg/dL; LDL CHOLESTEROL,CALCULATED 159 mg/dL; LDL/HDL RATIO 1.9 (<4.4); PHOSPHORUS 2.7 mg/dL (2.5-4.6); POTASSIUM 3.9 mmol/L (3.5-5.0); SODIUM 139 mmol/L (135-145); TOTAL PROTEIN 7.2 g/dL (6.7-8.2); TRIGLYCERIDES 84 mg/dL; VLDL CHOLESTEROL 17 mg/dL
== END 2022-08-10 23:59 | disposition home or self-care (01) ==
LOC: LAB.R 08:00
PROVIDERS: ATTEND Internal Medicine
DX: Z00.00 Encounter for general adult medical examination without abnormal findings (principal); M25.50 Pain in unspecified joint; K22.70 Barrett's esophagus without dysplasia; H26.9 Unspecified cataract; R25.2 Cramp and spasm; J45.909 Unspecified asthma, uncomplicated; N28.9 Disorder of kidney and ureter, unspecified; Z79.899 Other long term (current) drug therapy; G45.9 Transient cerebral ischemic attack, unspecified; R32 Unspecified urinary incontinence
CPT/HCPCS: 80053; 80061; 81001; 81003; 83721; 84100; 84443; 85025; 87086; 87181

== ENCOUNTER 2022-08-22 09:15 | Outpatient (CLI) | payer MEDICARE, OTHER ==
--- NOTE | 2022-08-23 12:42 | Mammography Report ---
BILATERAL DIGITAL SCREENING MAMMOGRAM 3D/2D: 08/22/2022 CLINICAL: Routine screening. Comparison is made to exams dated: 08/24/2021 mammogram, 06/30/2014 mammogram, and 01/20/2013 mammogram - [facility]. There are scattered areas of fibroglandular density in both breasts (category b / 25%-50% glandular t issue). There is a possible developing oval equal density focal asymmetry with fine calcifications in the lef t breast at 3 o'clock anterior depth. This is more prominent and increased in size. No other significant masses, calcifications, or other findings are seen in either breast. IMPRESSION: INCOMPLETE: NEEDS ADDITIONAL IMAGING EVALUATION The possible developing oval equal density focal asymmetry in the left breast is indeterminate. Frank tional views with possible ultrasound are recommended to include mediolateral and spot magnification views. Based on the Tyrer Cuzick model (a risk assessment model) the patients lifetime risk is 2.4% and her 10 year risk is 0.0%. According to the ACR, ACS, and NCCN guidelines, an annual breast MRI exam sherine g with mammogram is recommended if the patients lifetime risk is 20% or greater. This exam was interpreted at Station ID: [id number]. NOTE: For mammograms, a report in lay terms will be sent to the patient. Approximately 15% of breast malignancies will not be visualized mammographically. In the management of a palpable breast mass, a negative mammogram must not discourage biopsy of a clinically suspicious lesion. Electronically Signed By: Edi Feliciano M.D. aty/:08/22/2022 17:58:47 ACR BI-RADS Category 0: Incomplete 3340F PARENCHYMAL PATTERN: (A) - The breast(s) demonstrate(s) scattered fibroglandular densities. BI-RADS CATEGORY: (0) - 0 Mammo and [place] [id number] Immediate follow-up LATERALITY: (L)
== END 2022-08-22 09:16 | disposition home or self-care (01) ==
LOC: DI.N 09:15
PROVIDERS: ATTEND Internal Medicine
DX: Z12.31 Encounter for screening mammogram for malignant neoplasm of breast (principal)

== ENCOUNTER 2022-08-31 08:36 | Outpatient (CLI) | payer MEDICARE, OTHER ==
--- NOTE | 2022-09-03 10:06 | Mammography Report ---
UNILATERAL LEFT DIGITAL DIAGNOSTIC MAMMOGRAM 3D/2D WITH SPOT COMPRESSION: 08/31/2022 CLINICAL: Patient returns today to evaluate a focal asymmetry in the left breast. Comparison is made to exams dated: 08/22/2022 mammogram, 08/24/2021 mammogram, 06/30/2014 mammogram, and 01/20/2013 mammogram - [facility]. There are scattered areas of fibroglandular density in the left breast (category b / 25%-50% glandula r tissue). There is a developing irregular high density focal asymmetry with a spiculated and microlobulated mar gin and fine calcifications in the left breast at 3 o'clock anterior depth. This is more prominent a nd increased in size. No other significant masses or calcifications are seen in the breast. IMPRESSION: INCOMPLETE: NEEDS ADDITIONAL IMAGING EVALUATION The developing irregular high density focal asymmetry in the left breast is indeterminate. An ultras ound is being performed for further evaluation. Based on the Tyrer Cuzick model (a risk assessment model) the patients lifetime risk is 2.4% and her 10 year risk is 0.0%. According to the ACR, ACS, and NCCN guidelines, an annual breast MRI exam sherine g with mammogram is recommended if the patients lifetime risk is 20% or greater. This exam was interpreted at Station ID: [id number]. NOTE: For mammograms, a report in lay terms will be sent to the patient. Approximately 15% of breast malignancies will not be visualized mammographically. In the management of a palpable breast mass, a negative mammogram must not discourage biopsy of a clinically suspicious lesion. Electronically Signed By: Jaquan Waldron M.D. jr/:08/31/2022 09:58:19 ACR BI-RADS Category 0: Incomplete 3340F PARENCHYMAL PATTERN: (A) - The breast(s) demonstrate(s) scattered fibroglandular densities. BI-RADS CATEGORY: (0) - 0 RECOMMENDATION: (ADDMAM) - Recommend additional mammographic views. [id number] Immediate follow-up LATERALITY: (B)
--- NOTE | 2022-09-03 10:06 | Ultrasound Report ---
LIMITED ULTRASOUND OF LEFT BREAST: 08/31/2022 CLINICAL: Patient returns today to evaluate an asymmetry in the left breast. Comparison is made to exams dated: 08/31/2022 mammogram, 08/22/2022 mammogram, 08/24/2021 mammogram, 06/21 mammogram, and 01/20/2013 mammogram - [facility]. Color flow and real-time ultrasound of the left breast 2-3 o'clock region were performed. Denny scal e images of the real-time examination were reviewed. At the 2-3 o'clock position there is a vague and poorly-defined hypoechoic area measuring 8 mm, corre sponding in location and roughly corresponding in appearance to the focal asymmetry seen mammographic ally. IMPRESSION: SUSPICIOUS OF MALIGNANCY Hypoechoic irregular focus which likely corresponds to the mammographically depicted developing foca l asymmetry. Because this is much more convincingly demonstrated mammographically, a stereotactic bio psy is recommended. This exam was interpreted at Station ID: [id number]. Electronically Signed By: Jaquan Waldron M.D. jr/:08/31/2022 10:00:21 Ultrasound BI-RADS: 4 Suspicious for malignancy BI-RADS CATEGORY: (4) - 4 Unspecified - other recall n/a LATERALITY: (B)
== END 2022-08-31 08:37 | disposition home or self-care (01) ==
LOC: DI 08:36
PROVIDERS: ATTEND Internal Medicine
DX: R92.8 Other abnormal and inconclusive findings on diagnostic imaging of breast (principal)

== ENCOUNTER 2022-09-18 08:03 | Outpatient (CLI) | payer MEDICARE, OTHER ==
[2022-09-18] MEDS ORDERED: LIDOCAINE 1%-EPI 1:100000 20 ML MDV ONE (08:05)
[2022-09-18] MEDS ORDERED: LIDOCAINE-MPF 1% 5 ML VIAL ONE (08:06)
[2022-09-18] MEDS ORDERED: LIDOCAINE 1%-EPI 1:100000 20 ML MDV SUBQ ONE (12:15)
[2022-09-18] MEDS ORDERED: LIDOCAINE-MPF 1% 5 ML VIAL TD ONE (12:16)
--- NOTE | 2022-09-25 08:11 | Mammography Report ---
DIGITAL TOMOGRAPHIC MAMMOGRAPHY GUIDED STEREOTACTIC GUIDED BIOPSY LEFT BREAST USING VACUUM DEVICE WIT H MARKING DEVICE INSERTED AND POST DIGITAL MAMMOGRAPHIC IMAGING- POST-PROCEDURE IMAGING FOR MARKER PL ACEMENT: 09/18/2022 CLINICAL: Left stereotactic biopsy for focal asymmetry. Correlation is made to exams dated: 08/31/2022 mammogram, 08/22/2022 mammogram, 08/24/2021 mammogram, and 08/31/2022 ultrasound - [facility]. A stereotactic guided biopsy was performed for the irregular shaped asymmetry with calcifications loc ated in the left breast at 2 o'clock anterior depth. This was described on the previous mammography and ultrasound reports. The skin was prepped in the usual manner. Local anesthetic was administered to the access site. A s kin gisela was made in the breast. The abnormality was approached from the craniocaudal aspect using a n upright digital tomographic mammography unit. A 13 gauge biopsy needle was placed adjacent to the abnormality through an introducer device under computer guidance and confirmatory stereotactic mammog yoly images were obtained to document needle placement. Once the needle was documented to be in the correct location, seven specimens were obtained using a vacuum assisted device. A clip was inserted into the biopsy cavity. A skin adhesive and a sterile dressing were applied to t he access site. Post procedure digital mammographic imaging demonstrates the location device at the targeted area. The specimens were sent to the laboratory for pathological analysis. IMPRESSION: STEREOTACTIC GUIDED BIOPSY BENIGN Stereotactic guided biopsy of the asymmetry in the left breast at 2 o'clock anterior depth was succes sful with no apparent post procedure complications. Pathology indicates ductal hyperplasia. Pathology results are concordant with imaging findings. A follow-up mammogram in 6 months is recommended to demonstrate stability. This exam was interpreted at Station ID: [id number]. Berto Garza M.D. ar,slc/:09/24/2022 16:14:42 BI-RADS CATEGORY: () - Mammogram [id number] 6 month follow-up LATERALITY: (B)
== END 2022-09-18 08:04 | disposition home or self-care (01) ==
LOC: DI 08:03
PROVIDERS: ATTEND Internal Medicine
DX: R92.8 Other abnormal and inconclusive findings on diagnostic imaging of breast (principal); N62 Hypertrophy of breast
CPT/HCPCS: 19081

== ENCOUNTER 2022-10-15 07:33 | Outpatient (CLI) | payer MEDICARE, OTHER ==
--- NOTE | 2022-10-15 13:45 | MRI Report ---
PROCEDURE: BRAIN WO INDICATIONS: DIPLOPIA TECHNIQUE: Noncontrast axial T1 spin echo, axial T2 fast spin echo, sagittal and axial FLAIR, coronal T2 fast sp in echo, axial gradient echo, axial diffusion and ADC through the brain. COMPARISON: 04/17/2021 FINDINGS: Image quality: Excellent. CSF Spaces: Basal cisterns are patent. No extra-axial fluid collections. Ventricles are normal in size and shape. Brain: No intracranial masses or hemorrhage. Denny/white matter interface is normal. Brainstem appe ars normal. Diffusion-weighted images demonstrate no acute ischemic insult. No chronic ischemic ins ults. Normal intravascular flow voids are present. Brain parenchyma is normal in appearance for emily ent age. There is age-related volume loss is very mild small vessel ischemic change. Skull and face: Calvarium has normal marrow signal. Orbits appear normal. Sinuses: Sinuses and mastoids are clear. IMPRESSION: Negative brain MRI for patient age. No evidence of acute intracranial process. Reviewed by: Jonathan Laws MD on 10/15/2022 11:48 AM PDT Approved by: Jonathan Laws MD on 10/15/2022 11:48 AM PDT Station ID: [id number]
== END 2022-10-15 07:34 | disposition home or self-care (01) ==
LOC: DI 07:33
PROVIDERS: ATTEND Internal Medicine
DX: G93.9 Disorder of brain, unspecified (principal); H53.2 Diplopia

== ENCOUNTER 2022-10-30 12:10 | Outpatient (CLI) | payer MEDICARE, OTHER ==
--- NOTE | 2022-10-30 16:32 | XRAY Report ---
PROCEDURE: Knee 3 View RT INDICATIONS: JOINT OF RT FOOT, PX IN KNEE TECHNIQUE: 2 views of the right knee(s) were acquired. COMPARISON: None. FINDINGS: Bones: No fractures or dislocations. No suspicious bony lesions. Moderate right knee tricompartment al osteoarthritis with mild joint space narrowing and marginal osteophytosis. Soft tissues: No effusion. No suspicious soft tissue calcifications or masses. IMPRESSION: Moderate right knee tricompartmental osteoarthritis. Reviewed by: Regine Alvarado MD, PhD on 10/30/2022 4:31 PM PDT Approved by: Regine Alvarado MD, PhD on 10/30/2022 4:31 PM PDT Station ID: [id number]
--- NOTE | 2022-10-30 16:32 | XRAY Report ---
PROCEDURE: Ankle 3 View RT INDICATIONS: M25.571 TECHNIQUE: 3 views of the ankle were acquired. COMPARISON: None. FINDINGS: Bones: No fractures or dislocations. Ankle mortise is normally aligned. No suspicious bony lesions . Moderate right midfoot osteoarthritis. Mild right tibiotalar and subtalar joint osteophytosis. Larg e plantar calcaneal bone spur. Soft tissues: No tibiotalar joint effusion. Achilles tendon appears normal. IMPRESSION: Osteoarthritis. Reviewed by: Regine Alvarado MD, PhD on 10/30/2022 4:31 PM PDT Approved by: Regine Alvarado MD, PhD on 10/30/2022 4:31 PM PDT Station ID: [id number]
== END 2022-10-30 12:11 | disposition home or self-care (01) ==
LOC: DI 12:10
PROVIDERS: ATTEND Internal Medicine
DX: M17.11 Unilateral primary osteoarthritis, right knee (principal); M19.071 Primary osteoarthritis, right ankle and foot

== ENCOUNTER 2022-11-19 15:09 | Outpatient (CLI) | payer MEDICARE, OTHER ==
--- NOTE | 2022-11-19 18:45 | Ultrasound Report ---
PROCEDURE: Duplex Ext Veins Right INDICATIONS: EDEMA TECHNIQUE: Real-time imaging, as well as color and pulse Doppler interrogation, were performed of the lower extr emity deep veins from the inguinal ligament to the popliteal fossa. COMPARISON: None. FINDINGS: The deep veins are normally compressible, and free of intraluminal thrombus. Color and pu lse Doppler demonstrate normal phasic intraluminal flow. There is normal augmentation response to di stal compression maneuver. IMPRESSION: No evidence of deep venous thrombosis, right lower extremity Reviewed by: Nilson Charles MD on 11/19/2022 5:43 PM AKGURWINDER Approved by: Nilson Charles MD on 11/19/2022 5:43 PM AKGURWINDER Station ID: [id number]
== END 2022-11-19 15:10 | disposition home or self-care (01) ==
LOC: DI 15:09
PROVIDERS: ATTEND Internal Medicine
DX: R60.9 Edema, unspecified (principal)

== ENCOUNTER 2023-02-20 15:37 | Outpatient (CLI) | payer MEDICARE, OTHER ==
--- NOTE | 2023-02-20 16:32 | Ultrasound Report ---
PROCEDURE: Duplex Ext Veins Left INDICATIONS: EDEMA OF LOWER LEG TECHNIQUE: Real-time imaging, as well as color and pulse Doppler interrogation, were performed of the lower extr emity deep veins from the inguinal ligament to the popliteal fossa. COMPARISON: None. FINDINGS: Intraluminal thrombus is noted in the posterior tibial vein proximal to distal as well as t he mid and distal peroneal vein. Remaining deep venous structures are widely patent. IMPRESSION: Deep venous thrombosis in the posterior tibial as well as peroneal veins. Reviewed by: Astrid Marie MD on 02/20/2023 4:31 PM PDT Approved by: Astrid Marie MD on 02/20/2023 4:31 PM PDT Station ID: [id number]
== END 2023-02-20 15:38 | disposition home or self-care (01) ==
LOC: DI 15:37
PROVIDERS: ATTEND Internal Medicine
DX: I82.442 Acute embolism and thrombosis of left tibial vein (principal); I82.452 Acute embolism and thrombosis of left peroneal vein

== ENCOUNTER 2023-05-10 08:32 | Outpatient (CLI) | payer MEDICARE, OTHER ==
--- NOTE | 2023-05-10 11:23 | Mammography Report ---
UNILATERAL LEFT DIGITAL DIAGNOSTIC MAMMOGRAM 3D/2D: 05/10/2023 CLINICAL: Patient returns for a 6 month follow up of the left breast. Comparison is made to exams dated: 09/18/2022 stereotactic biopsy, 08/31/2022 mammogram, 08/22/2022 mamm ogram, 08/24/2021 mammogram, 06/30/2014 mammogram, and 01/20/2013 mammogram - [facility]. There are scattered areas of fibroglandular density in the left breast (category b / 25%-50% glandula r tissue). Focal asymmetry in the left breast is stable. Associated biopsy clip. No significant masses, calcifications, or other findings are seen in the breast. IMPRESSION: BENIGN There is no mammographic evidence of malignancy. Return to annual mammogram screening schedule is recommended. Based on the Tyrer Cuzick model (a risk assessment model) the patients lifetime risk is 2.4% and her 10 year risk is 0.0%. According to the ACR, ACS, and NCCN guidelines, an annual breast MRI exam sherine g with mammogram is recommended if the patients lifetime risk is 20% or greater. This exam was interpreted at Station ID: [id number]. NOTE: For mammograms, a report in lay terms will be sent to the patient. Approximately 15% of breast malignancies will not be visualized mammographically. In the management of a palpable breast mass, a negative mammogram must not discourage biopsy of a clinically suspicious lesion. Electronically Signed By: Terry Garza M.D. slc/:05/10/2023 09:38:20 ACR BI-RADS Category 2: Benign Finding(s) 3342F PARENCHYMAL PATTERN: (A) - The breast(s) demonstrate(s) scattered fibroglandular densities. BI-RADS CATEGORY: (2) - 2 Mammogram [id number] return to screening LATERALITY: (B)
== END 2023-05-10 08:33 | disposition home or self-care (01) ==
LOC: DI 08:32
PROVIDERS: ATTEND Internal Medicine
DX: R92.8 Other abnormal and inconclusive findings on diagnostic imaging of breast (principal); R92.322 Mammographic fibroglandular density, left breast

== ENCOUNTER 2023-08-12 06:38 | Day surgery (SDC) | payer MEDICARE, OTHER ==
[2023-08-12] MEDS ORDERED: LACTATED RINGERS 1,000 ML IV ONE (07:08)
--- NOTE | 2023-08-12 07:36 | ANESTHESIA ---
Pre-Anesthesia VS, & Labs - Diagnosis paiz's - Procedure EGD Vital Signs: Temp Pulse Resp BP Pulse Ox O2 Flow Rate 36.1 C L 63 16 132/81 H 100 08/12/23 07:10 08/12/23 07:10 08/12/23 07:10 08/12/23 07:10 08/12/23 07:10 Height: 5 ft 1 in Weight (kg): 76.8 kg Body Mass Index: 32.0 BMI Classification: Obese - NPO >8 hours - Is Patient ?: No Home Medications and Allergies Aspirin Chewable [St Veto Aspirin] 81 mg PO DAILY 05/23/21 Propylene Glycol/Peg 400/Pf [Systane 0.3-0.4% Eye Drops] 1 each OP PRN PRN 06/20/22 Psyllium [Metamucil] 1 each PO DAILY 06/20/22 methocarbamoL [Methocarbamol] 750 mg PO PRN PRN 06/20/22 Allergies/Adverse Reactions: Allergies Allergy/AdvReac Type Severity Reaction Status Date / Time cefazolin sodium * Allergy Severe Edema Verified 02/18/19 18:36 [From Ancef] cimetidine Allergy Severe Respiratory Verified 02/18/19 18:36 cyclobenzaprine HCl * Allergy Severe Edema Verified 02/18/19 18:36 [From Flexeril] famotidine [From Pepcid] Allergy Severe Edema Verified 02/18/19 18:36 hydrochlorothiazide Allergy Severe Respiratory Verified 02/18/19 18:36 omeprazole Allergy Severe Edema Verified 02/18/19 18:36 Penicillins Allergy Severe Edema Verified 02/18/19 18:36 pseudoephedrine HCl * Allergy Severe Edema Verified 02/18/19 18:36 [From Sudafed] rabeprazole Allergy Severe Edema Verified 02/18/19 18:36 red dye Allergy Severe Edema Verified 02/18/19 18:36 Sulfa (Sulfonamide Allergy Severe Edema Verified 02/18/19 18:36 Antibiotics) acetaminophen Allergy Intermediate Hives Verified 02/18/19 18:36 iodine Allergy Mild Rash Verified 02/18/19 18:36 lisinopril Allergy Unknown Verified 07/07/20 09:30 terfenadine Allergy not known Verified 02/18/19 18:36 cefdinir AdvReac Unknown Verified 08/12/23 06:41 cyclobenzaprine AdvReac Unknown Verified 08/12/23 06:43 [From Flexeril] doxycycline AdvReac Unknown Verified 08/12/23 06:42 metoclopramide [From Reglan] AdvReac Unknown Verified 05/23/21 12:58 shellfish derived AdvReac Headache Verified 09/18/22 12:29 tolterodine [From Detrol] AdvReac Unknown Verified 08/12/23 06:42 triamterene [From Dyrenium] AdvReac Unknown Verified 08/12/23 06:42 Anes History & Medical History - Anesthetic History Anesthesia Complications: reports: No previous complications - Medical History Cardiovascular: reports: Murmur Pulmonary: reports: Sleep apnea Gastrointestinal: reports: Colon polyps, Chronic constipation, Cholelithiasis, Ulcerative colitis, Other Urinary: reports: Renal insuffiency Neuro: reports: TIA, Other Musculoskeletal: reports: Osteoarthritis Endocrine/Autoimmune: reports: None Blood Disorders: reports: None Skin: reports: None, Other Smoking Status: Former smoker (quit 1979) - Surgical History General: reports: Cholecystectomy, Gastric surgery, EGD Eyes Ears Nose Throat (EENT): reports: Cataracts, Tonsil/Adenoidectomy, Other Gynecologic: reports: Hysterectomy Orthopedic: reports: Carpal Tunnel surgery Dermatologic: reports: Skin grafts Exam General: Alert Dental: WNL Mouth Opening: Greater than 4 Fingerbreadths Neck Mobility: Normal Mallampati classification: I Thyromental Distance: greater than 6 cm Respiratory: Lungs clear Cardiovascular: Regular rate Plan Anesthesia Type: Total IV Consent for Procedure(s) Verified and Reviewed: Yes Code Status: Attempt Resuscitation ASA classification: 2-Mild systemic disease Is this case an emergency?: No
[2023-08-12] MEDS ORDERED: LIDOCAINE-PF 2% 10 ML AMP SUBQ ONE (08:20)
[2023-08-12] MEDS ORDERED: PROPOFOL 200 MG/20 ML VIAL IVP ONE (08:20)
[2023-08-12] MEDS ORDERED: LACTATED RINGERS 800 ML IV ONE (08:44)
[2023-08-12 09:08] VITALS: BP 117/79; O2SAT 100
--- NOTE | 2023-08-12 11:31 | ANESTHESIA POST OP EVALUATION ---
Anesthesia Post Eval - Post Anesthesia Eval Vitals: Last Vital Signs Temp 36.3 C L 08/12/23 09:04 Pulse 60 08/12/23 09:04 Resp 16 08/12/23 09:04 BP 117/79 08/12/23 09:04 Pulse Ox 100 08/12/23 09:04 O2 Flow Rate CV Function Including HR & BP: Stable Pain Control: Satisfactory Nausea & Vomiting: Negative Mental Status: Baseline Respiratory Status: Airway Patent Hydration Status: Satisfactory Anesthesia Complications: None
== END 2023-08-12 06:39 | disposition home or self-care (01) ==
LOC: SDS 06:38
PROVIDERS: ATTEND Surgery
PROC: 0DB38ZX Excision of Lower Esophagus, Via Natural or Artificial Opening Endoscopic, Diagnostic (ICD-10-PCS; principal; 2023-08-12 08:15)
DX: K22.70 Barrett's esophagus without dysplasia (principal); E66.9 Obesity, unspecified; Z68.32 Body mass index [BMI] 32.0-32.9, adult; Z87.891 Personal history of nicotine dependence
CPT/HCPCS: 43239; J7120

== ENCOUNTER 2023-12-06 15:55 | Outpatient (CLI) | payer MEDICARE, OTHER | END 2023-12-06 15:56 | disposition home or self-care (01) | LOC: LAB 15:55 | PROVIDERS: ATTEND Urology | DX: R32 Unspecified urinary incontinence (principal) | CPT/HCPCS: 87086; 87181 ==

== ENCOUNTER 2023-12-24 15:47 | Outpatient (CLI) | payer MEDICARE, OTHER ==
--- NOTE | 2023-12-24 20:07 | Ultrasound Report ---
PROCEDURE: Renal (Retroperitoneal) INDICATIONS: BLADDER PAIN TECHNIQUE: Real-time scanning was performed of the retroperitoneal organs, with image documentation. COMPARISON: Renal ultrasound 02/09/2015 FINDINGS: Kidneys: Kidneys are normal in size. Right kidney measures 9.8 cm long; left kidney measures 9.1 cm long. Right renal cortical thickness is 1.3 cm; left renal cortical thickness is 1.2 cm. No obstru ction. Bilateral simple cysts are present measuring 2.8 x 2.1 x 2.4 cm on the right and 2.3 x 2.2 x 2 .1 cm on the left. Cysts were present on the prior exam measuring 3.1 cm on the right and 1.0 cm on t he left. Within the superior right renal pole there is an echogenic focus measuring 1.6 x 2.1 x 2.0 c m. This was not visualized on prior exam. Bladder: Pre-void bladder volume is 276 mL. Post-void residual is 13 mL. Pre-void images demonstra te no intraluminal masses or stones. On pre-void images, bilateral ureteral jets are noted with colo r Doppler interrogation. (Of note, ureteral jets may not be detectable in up to 25% of cases due to insufficient differences in specific gravity between ureteral and bladder urine). Miscellaneous: No free abdominal fluid. IMPRESSION: Bladder is unremarkable. Focus of increased echogenicity within the right kidney not visualized in 2015 exam. This could repre sent an angiomyolipoma. 3 month interval ultrasound follow-up or CT/MRI with adrenal protocol is alyce mmended for further evaluation. Reviewed by: Astrid Marie MD on 12/24/2023 8:06 PM PDT Approved by: Astrid Marie MD on 12/24/2023 8:06 PM PDT Station ID: [id number]
== END 2023-12-24 15:48 | disposition home or self-care (01) ==
LOC: DI 15:47
PROVIDERS: ATTEND Urology
DX: R39.89 Other symptoms and signs involving the genitourinary system (principal)

== ENCOUNTER 2024-04-13 10:39 | Outpatient (CLI) | payer MEDICARE, OTHER ==
--- NOTE | 2024-04-14 08:51 | CT Report ---
PROCEDURE: Abdomen WO INDICATIONS: ANGIOMYOLIPOMA OF KIDNEY CONTRAST: None TECHNIQUE: After the administration of oral contrast, 5 mm thick sections acquired from the diaphragms to the il iac crests. 5 mm coronal and sagittal reformats were then performed. For radiation dose reduction, the following was used: automated exposure control, adjustment of mA and/or kV according to patient size. COMPARISON: 12/24/2023 ultrasound FINDINGS: Image quality: Diagnostic Lower chest: Unremarkable lung bases. There is a moderate hiatal hernia, also containing omental vess els. Partially seen distended esophagus. Adjacent hyperdensity, possibly postsurgical changes versus calcifications. Liver: No contour deforming mass. A subcentimeter hypoattenuating left lobe liver lesion is too small to characterize, probably a cyst. Solid organs are not well evaluated without IV contrast Gallbladder and biliary system: Distended biliary system, probably related to post cholecystectomy st ate, CBD measures about 1 cm. Pancreas: No ductal dilation Spleen: Nonenlarged Adrenals: Bilateral thickening. Kidneys: Multiple simple appearing cysts are present. In the right upper pole, there is a lesion jaden ures 2.[address] attenuation. No hydronephrosis. No obstructing cause a right stone Vessels and lymph nodes: No abdominal aortic aneurysm. Atherosclerotic calcifications are present. Bowel and peritoneum: No evidence of small bowel obstruction. Colonic diverticula are seen. Body wall: Small fat-containing umbilical and periumbilical hernias. Subcutaneous nodule in the right lower quadrant measuring 9 mm, indeterminate on CT Bones: There are degenerative changes, no acute or suspicious osseous finding. IMPRESSION: Hyperechoic lesion in the right upper pole seen on ultrasound shows intermediate attenuation on CT, w ithout fatty contents. This is suspicious for renal cell carcinoma. Differential includes a lipid poo r angiomyolipoma. This is amenable to biopsy or further evaluation with renal protocol CT or MRI. If the patient cannot receive IV contrast, renal protocol MRI performed without contrast is preferabl e to CT. Reviewed by: Joey Bowie MD on 04/14/2024 8:50 AM PDT Approved by: Joey Bowie MD on 04/14/2024 8:50 AM PDT Station ID: [id number]
== END 2024-04-13 10:40 | disposition home or self-care (01) ==
LOC: DI 10:39
PROVIDERS: ATTEND Urology
DX: D17.71 Benign lipomatous neoplasm of kidney (principal)